=== PATIENT | male | born 1980 | race American Indian/Alaskan Native ===

== ENCOUNTER 2016-12-08 10:20 | Emergency (ER) | payer OTHER ==
[2016-12-08 10:24] VITALS: BP 134/85; PULSE 76; RESP 20; TEMP 98.3; O2SAT 97
--- NOTE | 2016-12-08 10:49 | C.PDOC ---
History Of Present Illness 35 y/o male presents to ED with complaints of left arm pain since last night after lifting a heavy Air conditioner. Patient states when he lifted he felt a "pop" on his arm and feels a "bulging" 8/10 pain. At ED patient was given Tylenol and an ice pack for pain and swelling. Patient denies numbness, tingling feeling, back pain or any other complaints at this time. Time Seen by Provider: 12/08/16 10:31 Chief Complaint (Nursing): Upper Extremity Problem/Injury History Per: Patient History/Exam Limitations: no limitations Onset/Duration Of Symptoms: Days Current Symptoms Are (Timing): Still Present Quality: "Pain" Past Medical History Reviewed: Historical Data, Nursing Documentation, Vital Signs Vital Signs: Last Vital Signs Temp 98.3 F 12/08/16 10:23 Pulse 76 12/08/16 10:23 Resp 20 12/08/16 10:23 BP 134/85 12/08/16 10:23 Pulse Ox 97 12/08/16 10:52 - [facility] Procedures EXC LES TEND SHEATH HAND (09/24/06) Family History: States: No Known Family Hx - Social History Hx Alcohol Use: Yes Hx Substance Use: No - Immunization History Hx Tetanus Toxoid Vaccination: Yes Hx Influenza Vaccination: No Hx Pneumococcal Vaccination: No Review Of Systems Constitutional: Negative for: Fever, Chills Cardiovascular: Negative for: Chest Pain Gastrointestinal: Negative for: Nausea, Vomiting, Diarrhea Musculoskeletal: Positive for: Arm Pain. Negative for: Shoulder Pain, Back Pain Neurological: Negative for: Weakness, Headache Physical Exam - Physical Exam Additional Physical Exam Comments: Constitutional: No acute distress. Head: Normocephalic. Atraumatic. Eyes: PERRL. ENT: Moist mucous membranes. Neck: Supple. Cardiovascular: Regular rate. Radial pulse 2+ bilaterally. Chest: No tenderness. Respiratory: Clear to auscultation bilaterally. GI: Soft. Nontender. Nondistended. Back: No CVA tenderness. Musculoskeletal: Full ROM on bilateral arms, Tenderness over left flexor of elbow, mild swelling, decreased strength on left arm and pain with movement, weakness on supination. Skin: No rash. Neurologic: Alert, no focal deficit. ED Course And Treatment O2 Sat by Pulse Oximetry: 97 (RA) Pulse Ox Interpretation: Normal Medical Decision Making Medical Decision Making: XR negative for fracture or dislocation. Suspect distal biceps tendon rupture. Placed in sling, f/u with Ortho. Dr. New's office called, recommends Brandi Jara for Ortho. Phone number provided to patient. Disposition - Disposition Referrals: Percy New DO [Staff Provider] - Katty Amezcua MD [Staff Provider] - Disposition: HOME/ ROUTINE Disposition Time: 11:34 Condition: STABLE Additional Instructions: Dr. 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 MD/DO has examined the patient and agrees with the treatment plan. - Scribe Statement The provider has reviewed the documentation as recorded by the Puneetibclayton Pelayo All medical record entries made by the Puneetibclayton were at my direction and personally dictated by me. I have reviewed the chart and agree that the record accurately reflects my personal performance of the history, physical exam, medical decision making, and the department course for this patient. I have also personally directed, reviewed, and agree with the discharge instructions and disposition.
--- NOTE | 2016-12-08 11:43 | RAD ---
PROCEDURE: Radiographs of the left elbow. HISTORY: pain in elbow COMPARISON: No prior. FINDINGS: BONES: Normal. No fracture. JOINTS: Normal. No osteoarthritis. SOFT TISSUES: Normal. JOINT EFFUSION: No significant anterior or obvious posterior joint effusion OTHER FINDINGS: None IMPRESSION: No evidence acute displaced fracture nor dislocation. Recommend followup MRI if occult fracture or soft tissue injury suspected clinically
== END 2016-12-08 12:10 | disposition home or self-care (01) ==
LOC: C.ER 10:20 → SUPCPDRO 10:20 → C.ER 12:10
DX: S59.902A Unspecified injury of left elbow, initial encounter (principal); X50.0XXA Overexertion from strenuous movement or load, initial encounter; Y93.89 Activity, other specified; Y92.89 Other specified places as the place of occurrence of the external cause